=== PATIENT | female | born 1945 | race Caucasian/White ===

== ENCOUNTER 2021-09-16 12:47 | Outpatient (CLI) | payer MEDICARE ==
[2021-09-16 15:15] LABS: Anion Gap 15 mmol/L (10-20); BUN (Urea Nitrogen) 22 mg/dL (9.8-20.1); Calc. Creatinine Clearance 0 mL/min (70-130); Calcium 9.1 mg/dL (7.8-10.44); Carbon Dioxide 24 mmol/L (23-31); Chloride 105 mmol/L (98-107); Glucose 222 mg/dL (83-110); Potassium 4.2 mmol/L (3.5-5.1); Sodium 140 mmol/L (136-145)
[2021-09-16 15:16] LABS: PTT 23.4 sec (22.0-33.0); Prothrombin Time 10.7 sec (9.5-12.1)
[2021-09-16 15:38] LABS: Hemoglobin 13.1 g/dL (12.0-15.5); Mean Corpuscular Hemoglobin 30.9 pg (27.0-33.0); Mean Corpuscular Volume 96.5 fl (81.6-98.3); Mean Platelet Volume 9.5 fl (7.4-10.4); Platelet Count 315 10x3/uL (150-450); RBC Distribution Width 12.4 % (11.5-14.5); Red Blood Cell (RBC) Count 4.24 10x6/uL (3.90-5.03); White Blood Cell (WBC) Count 5.8 10x3/uL (3.5-10.5)
[2021-09-17 16:38] LABS: SARS-CoV-2 PCR by NAA Not Detected (NotDetected)
== END 2021-09-16 12:48 | disposition home or self-care (01) ==
LOC: LABBT 12:47
PROVIDERS: ATTEND Neurological Surgery
DX: Z01.818 Encounter for other preprocedural examination (principal); Z20.822 Contact with and (suspected) exposure to COVID-19
CPT/HCPCS: 80048; 85027; 85610; 85730; 93005; U0003; U0005; 93010

== ENCOUNTER 2021-09-21 05:41 | Inpatient (IN) | payer MEDICARE ==
[2021-09-21] MEDS ORDERED: Clindamycin/D5W 900 mg/50 ml Premix Bag ONE ×3 (05:59→12:52)
[2021-09-21] MEDS ORDERED: EPINEPHrine 1 MG/ML AMP ONE (06:09)
[2021-09-21] MEDS ORDERED: Bupivacaine PF 0.5% 30 ML VIAL ONE (06:09)
[2021-09-21] MEDS ORDERED: Thrombin 5000 UNITS/5 ML VIAL ONE (06:10)
[2021-09-21] MEDS ORDERED: Neomycin-Polymyxin 1 ML AMP ONE (06:10)
[2021-09-21] MEDS ORDERED: Famotidine/PF 20 mg/2ml Vial ONE (06:21)
[2021-09-21] MEDS ORDERED: Levofloxacin 500 mg/D5W 100 ml Premix Bag ONE (06:38)
[2021-09-21] MEDS ORDERED: Phenylephrine 10 MG/ML VIAL ONE (07:00)
[2021-09-21] MEDS ORDERED: Fentanyl 100 MCG/2 ML VIAL ONE ×4 (07:09→16:52)
[2021-09-21] MEDS ORDERED: Lidocaine 1% PF 5 ML VIAL ONE (07:09)
[2021-09-21] MEDS ORDERED: PROPOFOL 200 MG/20 ML VIAL ONE (07:09)
[2021-09-21] MEDS ORDERED: ePHEDrine 50 MG/ML VIAL ONE (07:09)
[2021-09-21] MEDS ORDERED: Rocuronium Bromide 10 MG/ML (10ML VIAL) ONE (07:09)
[2021-09-21] MEDS ORDERED: Ondansetron PF 4 MG/2 ML Vial ONE (07:09)
[2021-09-21] MEDS ORDERED: PHENYLEPHRINE-NS 100 MCG/ML 10 ML SYRINGE ONE ×2 (07:09→15:43)
[2021-09-21 12:10] LABS: Hemoglobin 12.8 g/dL (12.0-16.0)
[2021-09-21] MEDS ORDERED: ePHEDrine Sulfate 50 MG/10 ML VIAL ONE (12:14)
[2021-09-21] MEDS ORDERED: Albumin 5% 0 ML ONE (13:48)
[2021-09-21] MEDS ORDERED: Heparin 5,000 UNITS/ML VIAL ONE (14:21)
[2021-09-21] MEDS ORDERED: Sodium Chloride 0.9% 10 ML ONE (14:21)
[2021-09-21] MEDS ORDERED: Norepinephrine 4 MG/4 ML VIAL ONE (14:40)
[2021-09-21] MEDS ORDERED: Promethazine HCl 25 MG/ML VIAL IM PRN ×2 (15:15→15:32)
[2021-09-21] MEDS ORDERED: Promethazine HCl 25 MG/ML VIAL IVPB PRN (15:15)
[2021-09-21] MEDS ORDERED: PACU-Morphine 4MG/ML VIAL SLOW IVP PRN (15:15)
[2021-09-21] MEDS ORDERED: SUGAMMADEX SODIUM 200 MG/2 ML VIAL ONE (15:17)
[2021-09-21] MEDS ORDERED: HYDROcodone/Acetaminophen 10/325 mg Tablet PO PRN (15:32)
[2021-09-21] MEDS ORDERED: diphenhydrAMINE 50 MG/ML VIAL IVP PRN (15:32)
[2021-09-21] MEDS ORDERED: Acetaminophen/Codeine 30-300mg Tablet PO PRN (15:32)
[2021-09-21] MEDS ORDERED: HYDROcodone/Acetaminophen 7.5/325 mg Tablet PO PRN (15:32)
[2021-09-21] MEDS ORDERED: Mag-Al 1200 mg/1200 mg/30 ML UDCUP PO PRN (15:32)
[2021-09-21] MEDS: CEFAZOLIN 2 GM, Admixture Fee 1 EACH in Sodium Chloride 0.9% 100 ML IVPB SCH ×2 (17:59→20:22)
[2021-09-21] MEDS: Ondansetron PF 4 MG/2 ML Vial IVP PRN (18:13)
[2021-09-21] MEDS: Morphine 4 MG/ML VIAL SLOW IVP PRN ×2 (18:15→22:09)
[2021-09-21] MEDS: Sodium Chloride 0.9% 1,000 ML IV SCH (18:22)
[2021-09-21] MEDS ORDERED: Budesonide 0.25 MG/2 ML NEB ONE (19:48)
[2021-09-22] MEDS: CEFAZOLIN 2 GM, Admixture Fee 1 EACH in Sodium Chloride 0.9% 100 ML IVPB SCH ×4 (01:37→17:40)
[2021-09-22] MEDS: Ondansetron PF 4 MG/2 ML Vial IVP PRN (02:32)
[2021-09-22 04:27] LABS: #Lymphocytes 1.2 thou/uL (1.20-3.40); #Monocytes 0.6 thou/uL (0.11-0.59); #Neutrophils 5.6 thou/uL (1.40-6.50); %Basophils 0.1 % (0.0-1.0); %Eosinophils 0.1 % (0.0-10.0); %Lymphocytes 15.7 % (21.0-51.0); %Monocytes 7.9 % (0.0-10.0); %Neutrophils 76.1 % (42.0-75.0); Hemoglobin 11.9 g/dL (12.0-16.0); Mean Corpuscular Hemoglobin 31.5 pg (27.0-31.0); Mean Corpuscular Volume 95.5 fL (78.0-98.0); Mean Platelet Volume 6.6 fL (7.4-10.4); Platelet Count 227 thou/uL (130-400); RBC Distribution Width 13.1 % (11.5-14.5); Red Blood Cell (RBC) Count 3.76 mill/uL (4.20-5.40); White Blood Cell (WBC) Count 7.4 thou/uL (4.8-10.8)
[2021-09-22 04:51] LABS: Anion Gap 11 mmol/L (10-20); BUN (Urea Nitrogen) 16 mg/dL (9.8-20.1); Calc. Creatinine Clearance 59 mL/min (70-130); Calcium 7.7 mg/dL (7.8-10.44); Carbon Dioxide 24 mmol/L (23-31); Chloride 108 mmol/L (98-107); Glucose 146 mg/dL (83-110); Potassium 3.7 mmol/L (3.5-5.1); Sodium 139 mmol/L (136-145)
[2021-09-22] MEDS: Sodium Chloride 0.9% 1,000 ML IV SCH ×3 (05:36→22:50)
[2021-09-22] MEDS: Tamsulosin HCl 0.4 MG CAP PO SCH (05:56)
[2021-09-22] MEDS: Morphine 4 MG/ML VIAL SLOW IVP PRN ×5 (05:56→12:59)
[2021-09-22] MEDS: tiZANidine HCl 4 MG TAB PO PRN ×2 (07:00→14:59)
[2021-09-22] MEDS: hydrALAZINE 20 MG/ML VIAL SLOW IVP PRN ×2 (10:41→13:44)
[2021-09-22] MEDS ORDERED: Dextrose 5% in Water 1,000 ML IV PRN (10:49)
[2021-09-22] MEDS ORDERED: HumaLOG 300 UNITS/3 ML VIAL SC PRN (10:49)
[2021-09-22] MEDS ORDERED: Dextrose 50% Abboject 50 ML SYRINGE SLOW IVP PRN (10:49)
[2021-09-22] MEDS ORDERED: Amlodipine 5 MG TAB PO SCH (11:00)
[2021-09-22] MEDS ORDERED: Anastrozole 1 MG TAB PO SCH (11:00)
[2021-09-22 14:23] LABS: Hemoglobin 12.9 g/dL (12.0-16.0); Platelet Count 226 thou/uL (130-400)
[2021-09-22] MEDS ORDERED: Metoprolol Tartrate 50 MG TAB PO SCH ×2 (15:00→21:00)
[2021-09-22] MEDS ORDERED: Morphine 10 MG/ML VIAL SLOW IVP PRN (15:18)
[2021-09-22] MEDS: Sodium Chloride 0.9% 500 ML IV SCH ×3 (17:00→23:55)
[2021-09-22] MEDS ORDERED: diphenhydrAMINE 50 MG/ML VIAL IVP PRN (17:02)
[2021-09-22] MEDS ORDERED: Zolpidem Tartrate 5 MG TAB PO PRN ×3 (17:02→17:20)
[2021-09-22] MEDS ORDERED: Morphine CADD 1 MG/ML CADD IVPB PRN ×2 (17:02→17:20)
[2021-09-22] MEDS ORDERED: diphenhydrAMINE 50 MG/ML VIAL IM PRN (17:02)
[2021-09-22] MEDS ORDERED: Promethazine HCl 25 MG/ML VIAL IM PRN (17:02)
[2021-09-22] MEDS ORDERED: Naloxone HCl 0.4 mg/ml Vial IV PRN ×2 (17:02→17:19)
[2021-09-22] MEDS ORDERED: diphenhydrAMINE 25 MG CAP PO PRN (17:02)
[2021-09-22] MEDS ORDERED: Ondansetron PF 4 MG/2 ML Vial IVP PRN ×2 (17:02→17:19)
[2021-09-22] MEDS ORDERED: Communication Order-Pharmacy FS SCH ×3 (17:15→17:30)
[2021-09-22] MEDS ORDERED: Morphine Sulfate 100 MG in Dextrose 5% in Water 98 ML IV SCH (17:45)
[2021-09-22] MEDS: HumaLOG 300 UNITS/3 ML VIAL SC PRN (18:27)
[2021-09-22] MEDS ORDERED: Sodium Chloride 0.45% 500 ML IV SCH (20:30)
[2021-09-22] MEDS ORDERED: Sodium Chloride 0.9% 500 ML IV SCH (21:00)
[2021-09-22] MEDS ORDERED: Adenosine 6 MG/2 ML VIAL ONE ×2 (22:21→22:27)
[2021-09-22] MEDS ORDERED: Norepinephrine 8 MG/0.9% NS 250 ML ONE (22:22)
[2021-09-22] MEDS ORDERED: Digoxin 0.5 MG/2 ML AMP ONE (22:43)
[2021-09-22] MEDS ORDERED: Adenosine 6 MG/2 ML VIAL IVP SCH (22:45)
[2021-09-22] MEDS ORDERED: Digoxin 0.5 MG/2 ML AMP SLOW IVP SCH (22:45)
[2021-09-22 23:42] LABS: Lactic Acid 1.5 mmol/L (0.5-2.2)
[2021-09-22] MEDS ORDERED: Norepinephrine 8 MG/0.9% NS 250 ML IVPB SCH (23:45)
[2021-09-22 23:48] LABS: #Lymphocytes 1.7 thou/uL (1.20-3.40); #Monocytes 0.8 thou/uL (0.11-0.59); #Neutrophils 7.3 thou/uL (1.40-6.50); %Basophils 0.3 % (0.0-1.0); %Eosinophils 0.3 % (0.0-10.0); %Lymphocytes 17.4 % (21.0-51.0); %Monocytes 7.7 % (0.0-10.0); %Neutrophils 74.2 % (42.0-75.0); Hemoglobin 11.1 g/dL (12.0-16.0); Mean Corpuscular HGB CONC 33.4 g/dL (32.0-36.0); Mean Corpuscular Hemoglobin 32.3 pg (27.0-31.0); Mean Corpuscular Volume 96.5 fL (78.0-98.0); Mean Platelet Volume 6.4 fL (7.4-10.4); Platelet Count 208 thou/uL (130-400); RBC Distribution Width 13.5 % (11.5-14.5); Red Blood Cell (RBC) Count 3.44 mill/uL (4.20-5.40); White Blood Cell (WBC) Count 9.8 thou/uL (4.8-10.8)
[2021-09-22 23:55] LABS: ALT (SGPT) 28 U/L (8-55); AST (SGOT) 44 U/L (5-34); Albumin 2.8 g/dL (3.4-4.8); Alkaline Phosphatase 22 U/L (40-110); Anion Gap 12 mmol/L (10-20); BUN (Urea Nitrogen) 19 mg/dL (9.8-20.1); Bilirubin, Total 0.4 mg/dL (0.2-1.2); Calc. Creatinine Clearance 29 mL/min (70-130); Calcium 6.6 mg/dL (7.8-10.44); Carbon Dioxide 19 mmol/L (23-31); Chloride 109 mmol/L (98-107); Glucose 122 mg/dL (83-110); Potassium 3.6 mmol/L (3.5-5.1); Protein, Total 4.8 g/dL (5.8-8.1); Sodium 136 mmol/L (136-145)
[2021-09-22] MEDS: Amiodarone 450 MG, Admixture Fee 1 EACH in Dextrose 5% in Water 250 ML IVPB SCH (23:55)
[2021-09-23 00:22] LABS: Bacteria/HPF 1+ HPF (None Seen); Bilirubin Negative (Negative); Blood, Urine 1+ (Negative); Clarity Turbid (Clear); Glucose, Urine (Dipstick) 50 mg/dL (Negative); Ketone, Urine 10 mg/dL (Negative); Leukocyte 500 Leu/uL (Negative); Nitrite Negative (Negative); Protein, Urine (Dipstick) 70 mg/dL (Neg-Trace); Specific Gravity, Urine 1.037 (1.002-1.036); Squamous Epithelial 0-3 HPF (0-3); Urobilinogen Normal mg/dL (Less than 2); WBC/HPF Greater than 50 HPF (0-3)
[2021-09-23 00:23] LABS: Urine Culture Reflex Yes Yes
[2021-09-23] MEDS: CEFAZOLIN 2 GM, Admixture Fee 1 EACH in Sodium Chloride 0.9% 100 ML IVPB SCH ×3 (02:06→16:13)
[2021-09-23 04:38] LABS: #Eosinphils 0.1 thou/uL (0.0-0.7); #Lymphocytes 1.5 thou/uL (1.20-3.40); #Neutrophils 8.1 thou/uL (1.40-6.50); %Basophils 0.4 % (0.0-1.0); %Eosinophils 0.6 % (0.0-10.0); %Lymphocytes 13.8 % (21.0-51.0); %Monocytes 9.2 % (0.0-10.0); %Neutrophils 76.1 % (42.0-75.0); Hemoglobin 11.7 g/dL (12.0-16.0); Mean Corpuscular HGB CONC 33.5 g/dL (32.0-36.0); Mean Corpuscular Hemoglobin 32.5 pg (27.0-31.0); Mean Corpuscular Volume 97.2 fL (78.0-98.0); Mean Platelet Volume 6.6 fL (7.4-10.4); Platelet Count 224 thou/uL (130-400); RBC Distribution Width 13.2 % (11.5-14.5); Red Blood Cell (RBC) Count 3.59 mill/uL (4.20-5.40); White Blood Cell (WBC) Count 10.7 thou/uL (4.8-10.8)
[2021-09-23 05:10] LABS: Anion Gap 11 mmol/L (10-20); BUN (Urea Nitrogen) 21 mg/dL (9.8-20.1); Calc. Creatinine Clearance 33 mL/min (70-130); Calcium 6.8 mg/dL (7.8-10.44); Carbon Dioxide 18 mmol/L (23-31); Chloride 110 mmol/L (98-107); Glucose 142 mg/dL (83-110); Potassium 3.6 mmol/L (3.5-5.1); Sodium 135 mmol/L (136-145)
[2021-09-23] MEDS: Tamsulosin HCl 0.4 MG CAP PO SCH (05:42)
[2021-09-23] MEDS: Sodium Chloride 0.9% 1,000 ML IV SCH ×3 (06:21→23:12)
[2021-09-23] MEDS: Amiodarone 450 MG, Admixture Fee 1 EACH in Dextrose 5% in Water 250 ML IVPB SCH (06:34)
[2021-09-23] MEDS ORDERED: EPINEPHrine 1 MG/ML AMP ONE ×2 (06:45→14:06)
[2021-09-23] MEDS ORDERED: Potassium Chloride 40 MEQ in Premix Bag 1 BAG IVPB SCH (06:45)
[2021-09-23] MEDS ORDERED: Neomycin-Polymyxin 1 ML AMP ONE (06:45)
[2021-09-23] MEDS ORDERED: Thrombin 5000 UNITS/5 ML VIAL ONE (06:45)
[2021-09-23] MEDS ORDERED: Bupivacaine PF 0.5% 30 ML VIAL ONE (06:45)
[2021-09-23] MEDS ORDERED: Fentanyl 100 MCG/2 ML VIAL ONE ×2 (07:08→10:58)
[2021-09-23] MEDS: Anastrozole 1 MG TAB PO SCH (09:11)
[2021-09-23] MEDS: Amlodipine 5 MG TAB PO SCH (09:12)
[2021-09-23] MEDS: Metoprolol Tartrate 50 MG TAB PO SCH ×2 (09:12→21:49)
[2021-09-23] MEDS ORDERED: CEFAZOLIN 2 GM, Admixture Fee 1 EACH in Sodium Chloride 0.9% 100 ML IVPB SCH (10:30)
[2021-09-23] MEDS ORDERED: Phenylephrine 10 MG/ML VIAL ONE (10:58)
[2021-09-23] MEDS ORDERED: PHENYLEPHRINE-NS 100 MCG/ML 10 ML SYRINGE ONE (11:17)
[2021-09-23] MEDS ORDERED: Lidocaine 1% PF 5 ML VIAL ONE (11:17)
[2021-09-23] MEDS ORDERED: Rocuronium Bromide 10 MG/ML (10ML VIAL) ONE (11:17)
[2021-09-23] MEDS ORDERED: Dexamethasone 20 MG/5 ML VIAL ONE (11:17)
[2021-09-23] MEDS ORDERED: Ondansetron PF 4 MG/2 ML Vial ONE (11:17)
[2021-09-23] MEDS ORDERED: PROPOFOL 200 MG/20 ML VIAL ONE (11:17)
[2021-09-23] MEDS ORDERED: Glycopyrrolate 0.2 MG/ML 5 ML SYRINGE ONE (11:17)
[2021-09-23] MEDS ORDERED: ePHEDrine 50 MG/ML VIAL ONE (11:17)
[2021-09-23] MEDS ORDERED: EPINEPHrine 1 MG/10 ML Abboject SYRINGE ONE ×2 (11:17→14:59)
[2021-09-23] MEDS ORDERED: Ketorolac Tromethamine 30 MG/ML VIAL ONE (11:17)
[2021-09-23] MEDS ORDERED: Norepinephrine 4 MG/4 ML VIAL ONE ×2 (14:03→14:07)
[2021-09-23] MEDS ORDERED: Propofol 1,000 MG/100 ML VIAL IV ONE (14:37)
[2021-09-23] MEDS ORDERED: Propofol 1,000 MG/100 ML VIAL IV PRN ×2 (14:43→15:00)
[2021-09-23] MEDS ORDERED: Propofol BOLUS 1,000 MG/100 ML VIAL IV PRN (15:00)
[2021-09-23 15:09] LABS: Actual Bicarbonate (HCO3a) 14.1 mEq/L (22-28); Base Excess (BEa) -13.1 mEq/L (-2.0 to +3.0); CO2 Tension 37.1 mmHg (35.0-45.0); Calcium, Ionized (arterial) 0.87 mmol/L (1.12-1.30); Carboxyhemoglobin (COHb) 0.8 gm% (0.0-3.0); Hemoglobin (Hb) 12.1 g/dL (12.0-16.0); O2 Tension (PaO2), arterial 158.5 mmHg (> 70.0); Potassium - ABG Lab 4.21 mmol/L (3.70-5.30)
[2021-09-23 15:14] LABS: #Eosinphils 0.1 thou/uL (0.0-0.7); #Lymphocytes 1.8 thou/uL (1.20-3.40); #Monocytes 1.3 thou/uL (0.11-0.59); #Neutrophils 9.4 thou/uL (1.40-6.50); %Basophils 0.3 % (0.0-1.0); %Eosinophils 0.9 % (0.0-10.0); %Lymphocytes 14.3 % (21.0-51.0); %Monocytes 10.2 % (0.0-10.0); %Neutrophils 74.3 % (42.0-75.0); Hemoglobin 11.6 g/dL (12.0-16.0); Mean Corpuscular HGB CONC 32.4 g/dL (32.0-36.0); Mean Corpuscular Volume 98.8 fL (78.0-98.0); Mean Platelet Volume 6.7 fL (7.4-10.4); Platelet Count 244 thou/uL (130-400); RBC Distribution Width 13.3 % (11.5-14.5); Red Blood Cell (RBC) Count 3.61 mill/uL (4.20-5.40); White Blood Cell (WBC) Count 12.7 thou/uL (4.8-10.8)
[2021-09-23 15:14] LABS: ALV-art Gradient 508.125 mmHg (0-20)
[2021-09-23 15:35] LABS: ALT (SGPT) 19 U/L (8-55); AST (SGOT) 49 U/L (5-34); Albumin 2.7 g/dL (3.4-4.8); Alkaline Phosphatase 29 U/L (40-110); Anion Gap 12 mmol/L (10-20); BUN (Urea Nitrogen) 20 mg/dL (9.8-20.1); Bilirubin, Total 0.4 mg/dL (0.2-1.2); Calc. Creatinine Clearance 41 mL/min (70-130); Calcium 6.1 mg/dL (7.8-10.44); Carbon Dioxide 15 mmol/L (23-31); Chloride 113 mmol/L (98-107); Globulin 2.5 g/dL (2.4-3.5); Glucose 162 mg/dL (83-110); Magnesium 1.5 mg/dL (1.6-2.6); Phosphorus 2.6 mg/dL (2.3-4.7); Potassium 4.2 mmol/L (3.5-5.1); Protein, Total 5.2 g/dL (5.8-8.1); Sodium 136 mmol/L (136-145)
[2021-09-23] MEDS ORDERED: Sodium Bicarbonate 150 MEQ in Dextrose 5% in Water 1,000 ML IV SCH (16:00)
[2021-09-23] MEDS ORDERED: Magnesium 2 GM/50 ML 2 GM in Premix Bag 1 BAG IVPB SCH (16:00)
[2021-09-23 16:02] LABS: Lactic Acid 1.1 mmol/L (0.5-2.2)
[2021-09-23] MEDS ORDERED: Fentanyl BOLUS 250 ML IVPB PRN (16:45)
[2021-09-23] MEDS: Fentanyl CADD 100 ML IV SCH (16:46)
[2021-09-23] MEDS: HumaLOG 300 UNITS/3 ML VIAL SC PRN (21:16)
[2021-09-24] MEDS: CEFAZOLIN 2 GM, Admixture Fee 1 EACH in Sodium Chloride 0.9% 100 ML IVPB SCH ×3 (01:25→16:54)
[2021-09-24] MEDS: Ondansetron PF 4 MG/2 ML Vial IVP PRN ×4 (02:57→22:50)
[2021-09-24 04:29] LABS: #Lymphocytes 0.7 thou/uL (1.20-3.40); #Monocytes 0.6 thou/uL (0.11-0.59); #Neutrophils 5.7 thou/uL (1.40-6.50); %Lymphocytes 9.9 % (21.0-51.0); %Monocytes 7.9 % (0.0-10.0); %Neutrophils 82.2 % (42.0-75.0); Hemoglobin 10.7 g/dL (12.0-16.0); Mean Corpuscular HGB CONC 34.3 g/dL (32.0-36.0); Mean Corpuscular Hemoglobin 32.7 pg (27.0-31.0); Mean Corpuscular Volume 95.5 fL (78.0-98.0); Mean Platelet Volume 7.2 fL (7.4-10.4); Platelet Count 222 thou/uL (130-400); RBC Distribution Width 12.8 % (11.5-14.5); Red Blood Cell (RBC) Count 3.27 mill/uL (4.20-5.40); White Blood Cell (WBC) Count 6.9 thou/uL (4.8-10.8)
[2021-09-24 04:45] LABS: ALT (SGPT) 21 U/L (8-55); AST (SGOT) 54 U/L (5-34); Albumin 2.7 g/dL (3.4-4.8); Alkaline Phosphatase 24 U/L (40-110); Anion Gap 13 mmol/L (10-20); BUN (Urea Nitrogen) 23 mg/dL (9.8-20.1); Bilirubin, Total 0.3 mg/dL (0.2-1.2); Calc. Creatinine Clearance 50 mL/min (70-130); Calcium 6.5 mg/dL (7.8-10.44); Carbon Dioxide 22 mmol/L (23-31); Chloride 108 mmol/L (98-107); Globulin 2.7 g/dL (2.4-3.5); Glucose 211 mg/dL (83-110); Magnesium 2.3 mg/dL (1.6-2.6); Phosphorus 1.3 mg/dL (2.3-4.7); Potassium 3.6 mmol/L (3.5-5.1); Protein, Total 5.4 g/dL (5.8-8.1); Sodium 139 mmol/L (136-145)
[2021-09-24] MEDS ORDERED: Electrolyte Replacement Protocol FS PRN (05:45)
[2021-09-24] MEDS ORDERED: PHOS-NAK 1 PKT PACK PO SCH (05:45)
[2021-09-24] MEDS: Tamsulosin HCl 0.4 MG CAP PO SCH (05:46)
[2021-09-24] MEDS ORDERED: Potassium Phosphate 22 MMOL in Sodium Chloride 0.9% 250 ML 250 ML IVPB SCH (06:15)
[2021-09-24] MEDS: HumaLOG 300 UNITS/3 ML VIAL SC PRN (06:30)
[2021-09-24 07:00] LABS: Base Excess (BEa) -4.8 mEq/L (-2.0 to +3.0); Calcium, Ionized (arterial) 0.87 mmol/L (1.12-1.30); Carboxyhemoglobin (COHb) 0.1 gm% (0.0-3.0); Hemoglobin (Hb) 10.7 g/dL (12.0-16.0); O2 Tension (PaO2), arterial 101.4 mmHg (> 70.0); pH, Arterial 7.54 (7.35-7.45)
[2021-09-24 07:58] LABS: CO2 Tension 19.2 mmHg (35.0-45.0)
[2021-09-24 07:59] LABS: Puncture Site Arterial Line
[2021-09-24] MEDS: Sodium Chloride 0.9% 1,000 ML IV SCH ×2 (08:45→16:27)
[2021-09-24] MEDS: Amlodipine 5 MG TAB PO SCH (08:47)
[2021-09-24] MEDS: Metoprolol Tartrate 50 MG TAB PO SCH ×2 (08:47→21:40)
[2021-09-24] MEDS: Anastrozole 1 MG TAB PO SCH (09:00)
[2021-09-24] MEDS: PHOS-NAK 1 PKT PACK PO SCH ×5 (09:00→21:46)
[2021-09-24] MEDS ORDERED: Morphine 4 MG/ML VIAL ONE (13:04)
[2021-09-24] MEDS: Fentanyl CADD 100 ML IV SCH (13:12)
[2021-09-24] MEDS ORDERED: Fentanyl CADD 100 ML IVPB SCH (13:15)
[2021-09-24] MEDS: Milk Of Magnesia 30 ML UDCUP PO PRN (16:23)
[2021-09-24 17:29] LABS: CKMB 7.2 ng/mL (0-6.6)
[2021-09-24] MEDS ORDERED: Digoxin 0.5 MG/2 ML AMP SLOW IVP SCH (19:30)
[2021-09-24] MEDS: Diltiazem 125 MG in Sodium Chloride 0.9% 100 ML IVPB SCH (20:56)
[2021-09-24 23:58] LABS: CKMB 6.8 ng/mL (0-6.6)
[2021-09-25] MEDS: hydrALAZINE 20 MG/ML VIAL SLOW IVP PRN ×2 (00:17→13:44)
[2021-09-25] MEDS: Sodium Chloride 0.9% 1,000 ML IV SCH ×3 (00:19→13:40)
[2021-09-25] MEDS ORDERED: Promethazine HCl 12.5 MG in Sodium Chloride 0.9% 50 ML IVPB SCH (03:30)
[2021-09-25 04:17] LABS: Anion Gap 18 mmol/L (10-20); BUN (Urea Nitrogen) 18 mg/dL (9.8-20.1); Calc. Creatinine Clearance 75 mL/min (70-130); Calcium 7.2 mg/dL (7.8-10.44); Carbon Dioxide 21 mmol/L (23-31); Chloride 105 mmol/L (98-107); Glucose 170 mg/dL (83-110); Potassium 3.8 mmol/L (3.5-5.1); Sodium 140 mmol/L (136-145)
[2021-09-25] MEDS: Tamsulosin HCl 0.4 MG CAP PO SCH (05:33)
[2021-09-25 05:50] LABS: #Lymphocytes 0.6 thou/uL (1.20-3.40); #Monocytes 0.7 thou/uL (0.11-0.59); #Neutrophils 7.3 thou/uL (1.40-6.50); %Lymphocytes 7.4 % (21.0-51.0); %Monocytes 7.9 % (0.0-10.0); %Neutrophils 84.7 % (42.0-75.0); Hemoglobin 11.5 g/dL (12.0-16.0); Mean Corpuscular HGB CONC 33.1 g/dL (32.0-36.0); Mean Corpuscular Hemoglobin 31.9 pg (27.0-31.0); Mean Corpuscular Volume 96.6 fL (78.0-98.0); Mean Platelet Volume 6.8 fL (7.4-10.4); Platelet Count 274 thou/uL (130-400); RBC Distribution Width 13.2 % (11.5-14.5); Red Blood Cell (RBC) Count 3.61 mill/uL (4.20-5.40); White Blood Cell (WBC) Count 8.6 thou/uL (4.8-10.8)
[2021-09-25] MEDS: HumaLOG 300 UNITS/3 ML VIAL SC PRN (06:30)
[2021-09-25] MEDS ORDERED: Sodium Chloride 0.9% 1,000 ML IV SCH (06:42)
[2021-09-25] MEDS: PHOS-NAK 1 PKT PACK PO SCH ×2 (08:00→12:00)
[2021-09-25] MEDS: Metoprolol Tartrate 50 MG TAB PO SCH ×2 (09:00→19:28)
[2021-09-25] MEDS: Amlodipine 5 MG TAB PO SCH (09:00)
[2021-09-25] MEDS: Anastrozole 1 MG TAB PO SCH (09:00)
[2021-09-25] MEDS: Diltiazem 125 MG in Sodium Chloride 0.9% 100 ML IVPB SCH (15:58)
[2021-09-25] MEDS ORDERED: Chloraseptic Spray 180 ml Bottle PO PRN (18:09)
[2021-09-25] MEDS: Senokot S 8.6-50 MG TAB PO SCH (19:28)
[2021-09-25] MEDS: Bisacodyl 10 MG SUPP PR SCH (19:47)
[2021-09-26] MEDS: Bisacodyl 10 MG SUPP PR SCH ×3 (02:32→17:45)
[2021-09-26] MEDS: hydrALAZINE 20 MG/ML VIAL SLOW IVP PRN ×2 (02:57→18:38)
[2021-09-26 04:02] LABS: Anion Gap 18 mmol/L (10-20); BUN (Urea Nitrogen) 16 mg/dL (9.8-20.1); Calc. Creatinine Clearance 83 mL/min (70-130); Calcium 7.5 mg/dL (7.8-10.44); Carbon Dioxide 26 mmol/L (23-31); Chloride 107 mmol/L (98-107); Glucose 140 mg/dL (83-110); Phosphorus 1.2 mg/dL (2.3-4.7); Potassium 3.3 mmol/L (3.5-5.1); Sodium 148 mmol/L (136-145)
[2021-09-26 04:37] LABS: Magnesium 2.2 mg/dL (1.6-2.6)
[2021-09-26] MEDS ORDERED: Potassium Chloride 10 MEQ in Premix Bag 1 BAG IVPB SCH (05:00)
[2021-09-26] MEDS ORDERED: Potassium Phosphate 22 MMOL in Sodium Chloride 0.9% 250 ML 250 ML IVPB SCH (05:15)
[2021-09-26] MEDS: Tamsulosin HCl 0.4 MG CAP PO SCH (06:21)
[2021-09-26] MEDS ORDERED: Lactated Ringer's 1,000 ML IV SCH (07:15)
[2021-09-26] MEDS: Sodium Chloride 0.45% 1,000 ML IV SCH ×2 (08:05→17:46)
[2021-09-26] MEDS: Senokot S 8.6-50 MG TAB PO SCH ×2 (08:06→20:26)
[2021-09-26] MEDS: Anastrozole 1 MG TAB PO SCH (08:06)
[2021-09-26] MEDS: Amlodipine 5 MG TAB PO SCH (08:06)
[2021-09-26] MEDS: Metoclopramide HCl 10 MG/2 ML VIAL IVP SCH ×3 (08:06→20:26)
[2021-09-26] MEDS: Metoprolol Tartrate 50 MG TAB PO SCH ×2 (08:06→20:26)
[2021-09-26] MEDS: Polyethylene Glycol 3350 17 GM Packet PER TUBE SCH (08:06)
[2021-09-26] MEDS: Diltiazem 125 MG in Sodium Chloride 0.9% 100 ML IVPB SCH (13:40)
[2021-09-26] MEDS: Labetalol HCl 100 MG/20 ML VIAL SLOW IVP PRN (15:08)
[2021-09-26] MEDS ORDERED: Norepinephrine 8 MG/0.9% NS 250 ML ONE (21:31)
[2021-09-27] MEDS: Bisacodyl 10 MG SUPP PR SCH ×3 (02:11→18:18)
[2021-09-27] MEDS: Metoclopramide HCl 10 MG/2 ML VIAL IVP SCH ×4 (02:11→20:38)
[2021-09-27] MEDS: Sodium Chloride 0.45% 1,000 ML IV SCH (02:14)
[2021-09-27 04:34] LABS: Anion Gap 20 mmol/L (10-20); BUN (Urea Nitrogen) 17 mg/dL (9.8-20.1); Calc. Creatinine Clearance 84 mL/min (70-130); Calcium 7.5 mg/dL (7.8-10.44); Carbon Dioxide 29 mmol/L (23-31); Chloride 104 mmol/L (98-107); Glucose 139 mg/dL (83-110); Magnesium 2.1 mg/dL (1.6-2.6); Sodium 150 mmol/L (136-145)
[2021-09-27 04:38] LABS: Phosphorus 1.2 mg/dL (2.3-4.7); Potassium 2.7 mmol/L (3.5-5.1)
[2021-09-27] MEDS: Diltiazem 125 MG in Sodium Chloride 0.9% 100 ML IVPB SCH (05:14)
[2021-09-27] MEDS ORDERED: PHOS-NAK 1 PKT PACK PO SCH (05:30)
[2021-09-27] MEDS ORDERED: Potassium Chloride 40 MEQ in Premix Bag 1 BAG IVPB SCH (05:45)
[2021-09-27] MEDS ORDERED: Potassium Phosphate 22 MMOL in Sodium Chloride 0.9% 250 ML 250 ML IVPB SCH (06:15)
[2021-09-27] MEDS: Tamsulosin HCl 0.4 MG CAP PO SCH (06:48)
[2021-09-27] MEDS ORDERED: Potassium Chloride 40 MEQ in Sodium Chloride 0.45% 1,000 ML IV SCH (07:00)
[2021-09-27] MEDS ORDERED: Potassium Chloride 40 MEQ in Dextrose 5% in Water 1,000 ML IV SCH (08:45)
[2021-09-27] MEDS ORDERED: Potassium Chloride 10 MEQ in Premix Bag 1 BAG IVPB SCH (10:00)
[2021-09-27] MEDS: Anastrozole 1 MG TAB PO SCH (10:28)
[2021-09-27] MEDS: Senokot S 8.6-50 MG TAB PO SCH ×2 (10:28→20:38)
[2021-09-27] MEDS: Amlodipine 5 MG TAB PO SCH (10:30)
[2021-09-27] MEDS: Metoprolol Tartrate 50 MG TAB PO SCH ×2 (10:30→20:37)
[2021-09-27] MEDS: Polyethylene Glycol 3350 17 GM Packet PER TUBE SCH (10:30)
[2021-09-27] MEDS: Labetalol HCl 100 MG/20 ML VIAL SLOW IVP PRN (18:03)
[2021-09-27] MEDS: Potassium Chloride 40 MEQ in Dextrose 5% in Water 1,000 ML IV SCH (18:16)
[2021-09-27] MEDS: hydrALAZINE 20 MG/ML VIAL SLOW IVP PRN (22:54)
[2021-09-28] MEDS: Potassium Chloride 40 MEQ in Dextrose 5% in Water 1,000 ML IV SCH ×3 (00:01→20:30)
[2021-09-28] MEDS: Metoclopramide HCl 10 MG/2 ML VIAL IVP SCH ×4 (02:53→20:31)
[2021-09-28] MEDS: Bisacodyl 10 MG SUPP PR SCH ×3 (02:54→18:23)
[2021-09-28 04:02] LABS: Anion Gap 12 mmol/L (10-20); BUN (Urea Nitrogen) 16 mg/dL (9.8-20.1); Calc. Creatinine Clearance 88 mL/min (70-130); Calcium 7.9 mg/dL (7.8-10.44); Carbon Dioxide 31 mmol/L (23-31); Chloride 111 mmol/L (98-107); Glucose 159 mg/dL (83-110); Sodium 151 mmol/L (136-145)
[2021-09-28 04:06] LABS: Magnesium 1.9 mg/dL (1.6-2.6); Potassium 2.8 mmol/L (3.5-5.1)
[2021-09-28] MEDS ORDERED: Magnesium 2 GM/50 ML 2 GM in Premix Bag 1 BAG IVPB SCH (04:30)
[2021-09-28] MEDS ORDERED: Potassium Chloride 40 MEQ in Premix Bag 1 BAG IVPB SCH (05:00)
[2021-09-28] MEDS ORDERED: Potassium Phosphate 22 MMOL in Sodium Chloride 0.9% 250 ML 250 ML IVPB SCH (05:00)
[2021-09-28] MEDS: Tamsulosin HCl 0.4 MG CAP PO SCH (05:29)
[2021-09-28] MEDS: hydrALAZINE 20 MG/ML VIAL SLOW IVP PRN (06:02)
[2021-09-28] MEDS: Amlodipine 5 MG TAB PO SCH (08:15)
[2021-09-28] MEDS: Anastrozole 1 MG TAB PO SCH (08:15)
[2021-09-28] MEDS: Polyethylene Glycol 3350 17 GM Packet PER TUBE SCH (08:16)
[2021-09-28] MEDS: Metoprolol Tartrate 50 MG TAB PO SCH ×2 (08:18→20:30)
[2021-09-28] MEDS: Senokot S 8.6-50 MG TAB PO SCH ×2 (08:19→20:35)
[2021-09-28] MEDS ORDERED: Potassium Chloride 10 MEQ in Premix Bag 1 BAG IVPB SCH (09:00)
[2021-09-28 09:31] LABS: Hemoglobin 12.3 g/dL (12.0-16.0); Mean Corpuscular HGB CONC 31.9 g/dL (32.0-36.0); Mean Corpuscular Hemoglobin 31.5 pg (27.0-31.0); Mean Corpuscular Volume 98.6 fL (78.0-98.0); Mean Platelet Volume 7.3 fL (7.4-10.4); Platelet Count 357 thou/uL (130-400); Red Blood Cell (RBC) Count 3.89 mill/uL (4.20-5.40); White Blood Cell (WBC) Count 9.4 thou/uL (4.8-10.8)
[2021-09-28 10:35] LABS: Bacteria/HPF None Seen HPF (None Seen); Bilirubin Negative (Negative); Blood, Urine Trace (Negative); Clarity Clear (Clear); Glucose, Urine (Dipstick) >=1000 mg/dL (Negative); Ketone, Urine Trace mg/dL (Negative); Leukocyte Negative Leu/uL (Negative); Nitrite Negative (Negative); Protein, Urine (Dipstick) 100 mg/dL (Neg-Trace); RBC/HPF 0-3 HPF (0-3); Specific Gravity, Urine 1.016 (1.002-1.036); Squamous Epithelial None Seen HPF (0-3); Urobilinogen Normal mg/dL (Less than 2); WBC/HPF 0-3 HPF (0-3); pH, Urine 7.5 (5.0-9.0)
[2021-09-28 10:38] LABS: Urine Culture Reflex No No
[2021-09-28 10:55] LABS: Band 5 % (5-11); Eosinophils 1 % (0-10); Lymphocytes 19 % (21-51); Monocytes 6 % (0-10); Neutrophil 69 % (42-75); Platelet Morphology Comment Appears Adequate; Polychromasia SLIGHT = 2-3 cells (100X) (0-2/hpf)
[2021-09-28 10:58] LABS: MDiff Complete? YES
[2021-09-28] MEDS ORDERED: Potassium Chloride 10 MEQ TAB PO SCH (18:00)
[2021-09-28] MEDS ORDERED: Potassium Chloride 20 MEQ TAB PO SCH (18:30)
[2021-09-28 19:12] LABS: Potassium 3.5 mmol/L (3.5-5.1)
[2021-09-28] MEDS: Potassium Chloride 10 MEQ TAB PO SCH (20:30)
[2021-09-29] MEDS: Metoclopramide HCl 10 MG/2 ML VIAL IVP SCH ×2 (02:27→11:08)
[2021-09-29] MEDS: Bisacodyl 10 MG SUPP PR SCH (02:27)
[2021-09-29 05:21] LABS: Anion Gap 10 mmol/L (10-20); BUN (Urea Nitrogen) 14 mg/dL (9.8-20.1); Calc. Creatinine Clearance 87 mL/min (70-130); Calcium 6.9 mg/dL (7.8-10.44); Carbon Dioxide 25 mmol/L (23-31); Chloride 106 mmol/L (98-107); Glucose 156 mg/dL (83-110); Magnesium 1.9 mg/dL (1.6-2.6); Potassium 3.7 mmol/L (3.5-5.1); Sodium 137 mmol/L (136-145)
[2021-09-29 05:33] LABS: Phosphorus 1.1 mg/dL (2.3-4.7)
[2021-09-29] MEDS ORDERED: Potassium Chloride 20 MEQ TAB PO SCH (05:45)
[2021-09-29] MEDS ORDERED: Magnesium 2 GM/50 ML 2 GM in Premix Bag 1 BAG IVPB SCH (05:45)
[2021-09-29] MEDS: PHOS-NAK 1 PKT PACK PO SCH ×2 (06:18→11:18)
[2021-09-29] MEDS: Tamsulosin HCl 0.4 MG CAP PO SCH (06:18)
[2021-09-29] MEDS: Ondansetron PF 4 MG/2 ML Vial IVP PRN (06:24)
[2021-09-29] MEDS ORDERED: Bisacodyl 10 MG SUPP PR PRN (09:04)
[2021-09-29] MEDS: Metoprolol Tartrate 50 MG TAB PO SCH ×2 (09:11→21:57)
[2021-09-29] MEDS: Potassium Chloride 10 MEQ TAB PO SCH ×3 (09:11→21:56)
[2021-09-29] MEDS: Amlodipine 5 MG TAB PO SCH (09:11)
[2021-09-29] MEDS: Senokot S 8.6-50 MG TAB PO SCH ×2 (09:11→21:57)
[2021-09-29] MEDS: Polyethylene Glycol 3350 17 GM Packet PER TUBE SCH (09:12)
[2021-09-29] MEDS: Anastrozole 1 MG TAB PO SCH (09:12)
[2021-09-29] MEDS: hydrALAZINE 25 MG TAB PO SCH ×2 (11:08→21:56)
[2021-09-29 12:36] VITALS: BMI 29.9
[2021-09-29] MEDS: Milk Of Magnesia 30 ML UDCUP PO PRN (22:04)
[2021-09-30] MEDS: hydrALAZINE 20 MG/ML VIAL SLOW IVP PRN (00:39)
[2021-09-30 04:17] VITALS: TEMP 98.2
[2021-09-30 06:01] LABS: Phosphorus 1.3 mg/dL (2.3-4.7)
[2021-09-30] MEDS: Tamsulosin HCl 0.4 MG CAP PO SCH (06:37)
[2021-09-30] MEDS: PHOS-NAK 1 PKT PACK PO SCH ×2 (06:37→10:46)
[2021-09-30] MEDS: Amlodipine 5 MG TAB PO SCH (08:34)
[2021-09-30] MEDS: Metoprolol Tartrate 50 MG TAB PO SCH (08:34)
[2021-09-30] MEDS: hydrALAZINE 25 MG TAB PO SCH (08:35)
[2021-09-30] MEDS: Anastrozole 1 MG TAB PO SCH (08:35)
[2021-09-30] MEDS: Potassium Chloride 10 MEQ TAB PO SCH (08:36)
[2021-09-30] MEDS: Polyethylene Glycol 3350 17 GM Packet PER TUBE SCH (08:37)
[2021-09-30] MEDS: Senokot S 8.6-50 MG TAB PO SCH (08:38)
[2021-09-30 16:12] VITALS: BP 140/52
== END 2021-09-30 14:40 | disposition home or self-care (01) | DRG 453 ==
LOC: SDC 05:41 → CCU 15:32 → IMCU/EMU 09-26 16:14 → SJJU 09-29 17:32
PROVIDERS: ADMIT Neurological Surgery; ATTEND Neurological Surgery
PROC: 0SG00AJ Fusion of Lumbar Vertebral Joint with Interbody Fusion Device, Posterior Approach, Anterior Column, Open Approach (ICD-10-PCS; principal; 2021-09-21)
PROC: 0SG30AJ Fusion of Lumbosacral Joint with Interbody Fusion Device, Posterior Approach, Anterior Column, Open Approach (ICD-10-PCS; 2021-09-21)
PROC: 01NB0ZZ Release Lumbar Nerve, Open Approach (ICD-10-PCS; 2021-09-21)
PROC: 01NR0ZZ Release Sacral Nerve, Open Approach (ICD-10-PCS; 2021-09-21)
PROC: 00QT0ZZ Repair Spinal Meninges, Open Approach (ICD-10-PCS; 2021-09-21)
PROC: 0WCH0ZZ Extirpation of Matter from Retroperitoneum, Open Approach (ICD-10-PCS; 2021-09-22)
PROC: 02H633Z Insertion of Infusion Device into Right Atrium, Percutaneous Approach (ICD-10-PCS; 2021-09-22)
PROC: 0SG0071 Fusion of Lumbar Vertebral Joint with Autologous Tissue Substitute, Posterior Approach, Posterior Column, Open Approach (ICD-10-PCS; 2021-09-23)
PROC: 0SG3071 Fusion of Lumbosacral Joint with Autologous Tissue Substitute, Posterior Approach, Posterior Column, Open Approach (ICD-10-PCS; 2021-09-23)
PROC: 0D9670Z Drainage of Stomach with Drainage Device, Via Natural or Artificial Opening (ICD-10-PCS; 2021-09-25)
DX: M48.062 Spinal stenosis, lumbar region with neurogenic claudication (principal); J96.00 Acute respiratory failure, unspecified whether with hypoxia or hypercapnia; T84.226A Displacement of internal fixation device of vertebrae, initial encounter; N17.9 Acute kidney failure, unspecified; K56.7 Ileus, unspecified; E87.0 Hyperosmolality and hypernatremia; I24.8 Other forms of acute ischemic heart disease; K91.89 Other postprocedural complications and disorders of digestive system; M43.16 Spondylolisthesis, lumbar region; M99.23 Subluxation stenosis of neural canal of lumbar region; Z20.822 Contact with and (suspected) exposure to COVID-19; M19.90 Unspecified osteoarthritis, unspecified site; I10 Essential (primary) hypertension; M54.16 Radiculopathy, lumbar region; E11.51 Type 2 diabetes mellitus with diabetic peripheral angiopathy without gangrene; M48.07 Spinal stenosis, lumbosacral region; I25.10 Atherosclerotic heart disease of native coronary artery without angina pectoris; Y83.8 Other surgical procedures as the cause of abnormal reaction of the patient, or of later complication, without mention of misadventure at the time of the procedure; Z53.8 Procedure and treatment not carried out for other reasons; E83.39 Other disorders of phosphorus metabolism; E87.6 Hypokalemia; I48.0 Paroxysmal atrial fibrillation; I25.2 Old myocardial infarction; Z86.73 Personal history of transient ischemic attack (TIA), and cerebral infarction without residual deficits; Z95.1 Presence of aortocoronary bypass graft; Z90.710 Acquired absence of both cervix and uterus; Z85.3 Personal history of malignant neoplasm of breast; Z79.84 Long term (current) use of oral hypoglycemic drugs; Z79.899 Other long term (current) drug therapy; Z87.891 Personal history of nicotine dependence
CPT/HCPCS: 36415; 36416; 36430; 71045; 71046; 74018; 74250; 76000; 80048; 80053; 81001; 82553; 82805; 83605; 83735; 84100; 84443; 84484; 85014; 85018; 85025; 86850; 86900; 86901; 87086; 93005; 93010; 93970; 94002; 94003; C1713; C1768; C1776; C1788; J0153; J0171; J0282; J0360; J0690; J1100; J1160; J1644; J1815; J1885; J1956; J2270; J2274; J2370; J2405; J2550; J2704; J2765; J3010; J3370; J3475; J3480; J3490; J7030; J7050; J7070; J7120; P9016; P9045; S0020; S0028